=== PATIENT | male | born 1990 | race Caucasian/White ===

== ENCOUNTER 2020-12-10 23:13 | Emergency (ER) | payer OTHER ==
[2020-12-10 23:57] LABS: HEMOGLOBIN 15.1 gm/dl (14.0-17.5); RED BLOOD COUNT 4.9 M/UL (4.20-5.50); WHITE BLOOD COUNT 11.3 K/UL (4.5-11.0)
[2020-12-11 00:16] LABS: BUN/CREATININE RATIO 13 (0-10)
[2020-12-11] MEDS ORDERED: LOPRESSOR 50 MG50 MG GT (00:41)
[2020-12-11] MEDS ORDERED: BUSPAR 10MG10 MG PO (00:41)
== END 2020-12-11 01:09 | disposition home or self-care (01) ==
LOC: ER1 23:13
PROVIDERS: Family Medicine
DX: R07.9 Chest pain, unspecified (principal); R00.0 Tachycardia, unspecified; I10 Essential (primary) hypertension
CPT/HCPCS: 80053; 82550; 82553; 83874; 84439; 84443; 84484; 85025; 85379; 93005; 96374; 99285